=== PATIENT | female | born 1960 | race Caucasian/White ===

== ENCOUNTER 2024-06-06 07:39 | Inpatient (IN) ==
--- NOTE | 2024-04-28 08:57 | PAT Medication Instructions ---
Medication Instructions Date of Service April 28, 2024 Home Medications ascorbic acid (vitamin C) 1,000 mg tablet (Vitamin C) 1 g PO BID wcdjhyv-dzutmrblqwzwz-ugvsiptc 250 mg-250 mg-65 mg tablet (Excedrin Extra Strength) 1 tab PO Q6H PRN Migraine Headache carbamazepine 200 mg tablet (Tegretol) 400 mg PO TID celecoxib 200 mg capsule 200 mg PO BID fiber 1 cap PO BID glucosamine HCl 1,500 mg tablet 1,500 mg PO HS multivitamin 1 tab PO QAM naproxen sodium 220 mg tablet (Aleve) 220 mg PO BID ondansetron HCl 8 mg tablet 8 mg PO Q12H PRN Nausea PreserVision AREDS 2 tab PO BID ASK your surgeon for instructions ytyffvu-rpvfhhkniruuu-sqpknhqg 250 mg-250 mg-65 mg tablet (Excedrin Extra Strength) 1 tab PO Q6H PRN Migraine Headache celecoxib 200 mg capsule 200 mg PO BID naproxen sodium 220 mg tablet (Aleve) 220 mg PO BID STOP taking 2 weeks before surgery (or as soon as possible if surgery is within 2 weeks) glucosamine HCl 1,500 mg tablet 1,500 mg PO HS PreserVision AREDS 2 tab PO BID DO NOT take the morning of surgery ascorbic acid (vitamin C) 1,000 mg tablet (Vitamin C) 1 g PO BID fiber 1 cap PO BID multivitamin 1 tab PO QAM Take morning of surgery With a small sip of water, OTHERWISE NOTHING TO EAT OR DRINK AFTER MIDNIGHT: carbamazepine 200 mg tablet (Tegretol) 400 mg PO TID ondansetron HCl 8 mg tablet 8 mg PO Q12H PRN Nausea (if needed) Take evening before surgery ascorbic acid (vitamin C) 1,000 mg tablet (Vitamin C) 1 g PO BID carbamazepine 200 mg tablet (Tegretol) 400 mg PO TID fiber 1 cap PO BID ondansetron HCl 8 mg tablet 8 mg PO Q12H PRN Nausea (if needed) Other Notes If you have any questions please call us at [phone] or [phone] or [phone] or [phone]
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
[~2024-06-06 07:39] MED LIST: DEXAMETHASONE SOD INJ 4 MG/ML VIAL ONE; GLYCOPYRROLATE 0.2 MG/ML VIAL ONE; LIDOCAINE 2% 2 ML VIAL/AMP(20MG/ML) INFIL ONE; MIDAZOLAM HCL 1 MG/ML 2ML VIAL ONE; ONDANSETRON INJ 2 MG/ML 2 ML VIAL ONE; PROPOFOL IV EMULSION 10 MG/ML 20 ML VIAL IV ONE; ROCURONIUM BROMIDE 10 MG/ML 5 ML VIAL IV ONE; SUGAMMADEX SODIUM 200 MG/2 ML VIAL IV ONE; fentaNYL citrate PF 100 MCG/2 ML VIAL ONE
[2024-06-06] MEDS: LR 15ML/HR IV SCH (08:55)
[2024-06-06] MEDS: LR 60ML/HR IV SCH (09:04)
[2024-06-06] MEDS: ACETAMINOPHEN 500 MG TAB PO SCH (09:08)
[2024-06-06] MEDS: CeleBREX 200 MG CAP PO SCH (09:09)
[2024-06-06] MEDS: GABAPENTIN 600 MG DOSE PO SCH (09:09)
[2024-06-06] MEDS ORDERED: ONDANSETRON INJ 2 MG/ML 2 ML VIAL IV PRN ×2 (09:14→14:25)
[2024-06-06] MEDS ORDERED: ePHEDrine sulfate 50 MG/ML AMP IV PRN (09:14)
[2024-06-06] MEDS ORDERED: ATROPINE SULFATE 0.1 MG/ML 10ML SYR IV PRN (09:14)
--- NOTE | 2024-06-06 09:27 | History & Physical Bridge Note ---
Date of Service June 06, 2024 History & Physical Bridge Note I have examined the patient, reviewed the History & Physical and in the interval since the performance of the History & Physical I have noted the following changes of clinical significance: no changes noted
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
[2024-06-06] MEDS: ceFAZolin 2000MG 2,000 MG/15 ML SYR IV SCH (09:50)
[2024-06-06] MEDS ORDERED: fentaNYL citrate PF 100 MCG/2 ML VIAL ONE (10:21)
[2024-06-06] MEDS: BUPIVACAINE/EPINEPHRINE 0.25% 1:200,000 30 ML VIAL ONE (10:30)
[2024-06-06] MEDS ORDERED: ePHEDrine sulfate 50 MG/5 ML SYR ONE (10:55)
[2024-06-06] MEDS: ceFAZolin 330 MG/ML 1 GM VIAL ONE (11:44)
[2024-06-06] MEDS: FLOSEAL HEMOSTATIC MATRIX 10ML TOP ONE (11:44)
--- NOTE | 2024-06-06 11:54 | Operative Report ---
Post Operative Report Pre & Post Diagnosis Operation Date: 06/06/24 09:35 Pre-Op Diagnosis: #1 lumbar spinal stenosis with neurogenic claudication #2 lumbar spondylolisthesis L5-S1 with pars defect. #3 hernia nucleus pulposus L4-L5. Post-Op Diagnosis: Same I identified the patient and participated in the time-out.: Yes Procedure Operation Date: 06/06/24 09:35 Actual Procedures #1 lumbar decompression bilateral medial facetectomies and foraminotomies L3-L4 L4-L5 and L5-S1. #2 posterior spinal fusion L4-S1. #3 placed posterior instrumentation L4-S1. #4 interbody fusion L4-L5 L5-S1. #5 placement of Spira 13 x 26 mm x 2 at L4-L5 and the 10 x 26 mm x 2 at L5-S1. #6 placement locally harvested morselized autograft and posterior gutters. #7 placement of infuse collagen sponge combined with Koros in the posterior lateral gutters and os design interbody space. #8 application of versa wrap over the exposed dura. Surgeon Cory Luong, Tube Laser Operator Perla Manrique Estimated Blood Loss 400 Findings Consistent with Post-Op Diagnosis Specimens None Indications This is a 63-year-old female who presents above-mentioned diagnosis.. After failing since course of nonoperative care is here for surgical invention. Description of Procedure Patient was met with identified informed consent obtained. Patient was then taken to the operative suite underwent intubation placed in a prone position on the Magdy table on top of the Geovani frame. All bony promises well-padded eyes inspected to ensure no external pressure placed upon them. This point the lumbar spine was prepped and draped in normal sterile fashion. Sharp dissection with the assistance of Bovie cautery was performed down to and exposing the lamina and transverse processes of L4-5 and the sacral ala bilaterally. Obvious pars defect identified L5-S1 bilaterally. And then performed a complete laminectomy of L5 including bilateral medial facetectomies and foraminotomies addressing severe spinal stenosis. This is followed by complete laminectomy of L4 with bilateral medial facetectomies and foraminotomies as well as a large disc herniation on the left removed. And performed a partial laminectomy of L3 with bilateral medial facetectomies to address all subarticular stenosis. Pedicle screws were then placed in L4-L5 and S1 levels bilaterally with assistance of fluoroscopy and the properly sized darian placed. By way of transforaminal approach on the right a discectomy of L5-S1 was performed en dplates guarded to subcortical bleeding bone and a 10 x 26 mm Spira cage filled with os designed tapped in position. Then proceeded to the left transforaminal region at L5-S1. Again discectomy performed endplates corrected to subcortical bleeding bone and a second 10 x 26 mm Spira cage filled with os designed tapped into position. Then approached L4-L5 by way of transforaminal approach on the l eft a discectomy performed endplates guarded to subcortical bleeding bone and the 13 x 26 mm Spira cage filled with os designed tapped in position. I then proceeded to the right transforaminal region at L4-L5. Discectomy performed endplates. To supportively bone and a second 13 x 26 mm spiral cage filled with os designed tapped into position. The rods then compressed locked into final position bilaterally. The transverse processes of L4-5 and the sacral ala burred to subcortical bleeding bone. Infuse collagen sponge, with Koros and local autograft placed in posterior gutters. Versa wrap placed over the exposed dura. 15 round TONY drain inserted. The incision was then closed with 1 Vicryl the fascia 2-0 Vicryl subcutaneously and 4 Monocryl for final skin closure. Steri-Strips sterile dressings placed. Patient waken taken to PACU in stable condition. Please note spinal cord monitoring was utilized at the procedure no changes noted. Perla Manrique was present out the entire surgery involved the patient positioning complex portions of the surgery and possible closure. Im ordering 20 grams of Triple [place] Collagen Powder (Metricly [id number]) to treat an incision wound that was caused by a spine procedure. The incision is approximately 2 cm(W) x 4 cm(L) into the joint (D) in size and is a full thickness wound. Triple [place] collagen comes in 1 gram packets so 20 packets were ordered. Given the size of the wound, with light to moderate exudate I chose to order a 20 day supply. The patient will be provided instructions for proper application of the collagen wound kit. The patient will be asked to apply the collagen powder daily and then cover it with sterile dressings dispensed. Collagen was selected as I expect the collagen to attract monocytes and fibroblasts, act as a sacrificial substrate for MMPs, and ultimately proved a matrix for tissue and vessel growth. The collagen will act as a primary dressing in this scenario. It is medically necessary for proper healing of these wounds to improve bioavailability and contact with each wound surface, this is also to help prevent infection of wounds and promote healing ultimately leading to a better healing outcome and limit the risk of infection. I attest to the content of the Intraoperative Record and any orders documented therein. Any exceptions are noted below.
[2024-06-06] MEDS: fentaNYL citrate PF 100 MCG/2 ML VIAL IV PRN (12:15)
--- NOTE | 2024-06-06 12:33 | Fluoroscopy Report ---
INTRAOPERATIVE RADIOGRAPHS CLINICAL HISTORY: L4-S1 spinal fusion. Fluoro time: 27 seconds Ka,r: 22.47 mGy FINDINGS: 2 spot fluoroscopic views of the lumbar spine are presented. There has been discectomy at L 4-L5 and L5-S1 with laminectomy and posterior fusion at L4-S1. Interpedicular screws are present at a ll levels. The orthopedic hardware appears intact. IMPRESSION: Intraoperative images from lumbar spinal fusion surgery as above. Electronically signed by: Gaurav Turner M.D. 06/06/2024 12:32 PM
[2024-06-06] MEDS ORDERED: HYDROmorphone INJ 0.5 MG/0.5 ML SYR IV PRN ×2 (12:59→14:25)
[2024-06-06] MEDS: HYDROmorphone INJ 1 MG/ML SYRINGE ONE (13:02)
[2024-06-06] MEDS ORDERED: DO NOT ADMINISTER PNEUMOCOCCAL VACCINE PRN (14:25)
[2024-06-06] MEDS ORDERED: METOCLOPRAMIDE HCL INJ 5 MG/ML 2 ML VIAL IV PRN (14:25)
[2024-06-06] MEDS ORDERED: ALUMINUM/MAGNESIUM SUSP 30 ML UDC PO PRN (14:25)
[2024-06-06] MEDS ORDERED: hydrOXYzine HCl 25 MG TAB PO PRN (14:25)
[2024-06-06] MEDS ORDERED: LORazepam 2 MG/1 ML VIAL IV PRN (14:25)
[2024-06-06] MEDS ORDERED: FAMOTIDINE 20 MG TAB PO PRN (14:25)
[2024-06-06] MEDS ORDERED: bisacodyL 10 MG SUPP PR PRN (14:25)
[2024-06-06] MEDS ORDERED: DO NOT ADMINISTER FLU VACCINE PRN (14:25)
[2024-06-06] MEDS ORDERED: NALOXONE HCL 0.4 MG/1 ML VIAL/CARP IV PRN (14:25)
[2024-06-06] MEDS ORDERED: ACETAMINOPHEN 1,000 MG/100 ML VIAL IV PRN (14:25)
[2024-06-06] MEDS ORDERED: PROMETHAZINE 12.5 MG/50.5 ML BAG IV PRN (14:25)
[2024-06-06] MEDS ORDERED: LORazepam 0.5 MG TAB PO PRN (14:25)
[2024-06-06] MEDS ORDERED: diphenhydrAMINE Capsule 25 MG CAP PO PRN (14:25)
[2024-06-06] MEDS ORDERED: SOD PHOSPHATE/SOD BIPHOSPHATE ENEMA 132 ML BTL PR PRN (14:25)
[2024-06-06] MEDS ORDERED: MAGNESIUM HYDROXIDE SUSP 30 ML UDC PO PRN (14:25)
[2024-06-06] MEDS: LACTATED RINGER'S 1,000 ML IV SCH (14:36)
--- NOTE | 2024-06-06 15:14 | Anesthesiology Progress Note ---
Date of Service June 06, 2024 Anesthesia Post Procedure Vital Signs Vital Signs: Temp Pulse Pulse Resp BP Pulse Ox O2 Del Method 06/06/24 14:50 89 16 133/72 97 Nasal Cannula 06/06/24 14:20 97.7 F 100 H 18 131/74 98 Nasal Cannula 06/06/24 14:05 71 16 136/73 99 Nasal Cannula 06/06/24 13:45 74 12 137/66 99 Nasal Cannula 06/06/24 13:35 71 12 136/68 100 Nasal Cannula 06/06/24 13:25 97.5 F L 70 18 136/73 100 Nasal Cannula 06/06/24 13:15 74 16 148/74 H 100 Oxymask 06/06/24 13:05 68 13 132/64 100 Oxymask 06/06/24 12:55 85 13 129/99 100 Oxymask 06/06/24 12:45 87 13 139/70 100 Oxymask 06/06/24 12:35 73 15 146/74 H 100 Oxymask 06/06/24 12:25 81 16 141/80 H 100 Oxymask 06/06/24 12:15 66 12 136/68 100 Oxymask 06/06/24 12:06 97.3 F L 84 19 123/71 99 Oxymask 06/06/24 08:41 97.7 F 67 18 161/80 H 97 Room Air O2 Flow Rate 06/06/24 14:50 2.0 06/06/24 14:20 2.0 06/06/24 14:05 2 06/06/24 13:45 2 06/06/24 13:35 2 06/06/24 13:25 2 06/06/24 13:15 2 06/06/24 13:05 4 06/06/24 12:55 4 06/06/24 12:45 4 06/06/24 12:35 4 06/06/24 12:25 6 06/06/24 12:15 8 06/06/24 12:06 8 06/06/24 08:41 Pain Intensity Bilateral Lower Buttock: Pain Intensity: 6 Back: Pain Intensity: 5 Transfer of Care Handoff Completed per policy Notes Mental Status: alert / awake / arousable and participated in evaluation Patient Amnestic to Procedure: Yes Nausea / Vomiting: adequately controlled Pain: adequately controlled and improving with treatment Airway Patency, RR, SpO2: stable & adequate BP & HR: stable & adequate Hydration State: stable & adequate Anesthetic Complications: no major complications apparent and Pt Satisfied with anesthetic care
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
[2024-06-06] MEDS ORDERED: linaCLOtide 72 MCG CAPSULE PO PRN (16:02)
[2024-06-06] MEDS: ceFAZolin 1000MG 1,000 MG/7.5 ML SYR IV SCH (18:06)
[2024-06-06] MEDS: oxyCODONE HCL IR 5 MG TAB (IMMEDIATE RELEASE) PO PRN (20:30)
[2024-06-06] MEDS: ACETAMINOPHEN 500 MG TAB PO PRN (20:30)
[2024-06-06] MEDS: DOCUSATE SODIUM/SENNA 50/8.6MG TAB PO SCH (20:30)
[2024-06-06] MEDS: ASCORBIC ACID 500 MG TAB PO SCH (22:11)
[2024-06-06] MEDS: carBAMazepine 200 MG TABLET PO SCH (22:11)
[2024-06-07] MEDS: traMADol HCL 50 MG TABLET PO PRN (04:23)
[2024-06-07] MEDS: POLYETHYLENE (MIRALAX) 17 GM PACK PO SCH (05:38)
[2024-06-07 08:10] LABS: Basophils # (auto) 0.04 K/uL (0.00-0.20); Basophils % (auto) 0.5 %; Eosinophils # (auto) 0.04 K/uL (0.00-0.50); Eosinophils % (auto) 0.5 %; Hematocrit (blood only) 26.8 % (37.0-47.0); Immature Granulocytes # (auto) 0.02 K/uL (0.01-0.20); Immature Granulocytes % (auto) 0.2 %; Lymphocytes # (auto) 1.13 K/uL (1.20-3.40); Mean Corpuscular Hgb Conc 33.6 g/dL (32.0-36.0); Mean Corpuscular Volume 95.4 fL (80.0-100.0); Mean Platelet Volume 9.9 fL (9.4-12.4); Monocytes # (auto) 1.16 K/uL (0.11-0.59); Monocytes % (auto) 13.3 %; Neutrophils % (auto) 72.5 %; Platelet Count 186 K/uL (130-400); RDW Coefficient of Variation 12.9 % (11.5-14.5); RDW Standard Deviation 45.4 fL (36.4-46.3); Red Blood Count 2.81 M/uL (4.20-5.40); White Blood Count 8.69 K/ul (4.8-10.8)
[2024-06-07 08:34] LABS: Calcium 8.4 mg/dl (8.6-10.3); Creatinine Clr Calc Pharmacy 92.9 ml/min
--- NOTE | 2024-06-07 09:13 | Orthopedic Progress Note ---
Date of Service June 07, 2024 Assessment & Plan (1) Neurogenic claudication due to lumbar spinal stenosis: Plan: At this time continue physical therapy monitor TONY operatively discharge home next few days. Admission and Anticipated Discharge Date Admission Date: June 06, 2024 Subjective Back pain is controlled leg pain markedly improved Physical Exam Physical Exam: Patient is in the chair at the bedside. Suggesting to testing. Appears comfortable. Results & Data Vital Signs (Past 12 Hours) Vital Signs Temp Pulse Pulse Resp BP Pulse Ox O2 Del Method 06/07/24 08:13 37.0 C 94 H 14 135/80 94 Room Air 06/07/24 03:36 36.9 C 81 13 119/69 94 Room Air 06/06/24 23:20 37.0 C 81 13 126/64 95 Room Air
[2024-06-07] MEDS: CEROVITE ADV FORMULA TAB PO SCH (09:26)
[2024-06-07] MEDS: MULTIVITAMIN TAB PO SCH (09:26)
[2024-06-07] MEDS: dexAMETHasone 6 MG in SYRINGE 0 ML IV SCH (09:30)
--- NOTE | 2024-06-07 14:53 | Hospitalist Progress Note ---
Date of Service June 07, 2024 Assessment & Plan (1) Neurogenic claudication due to lumbar spinal stenosis: Plan: Patient is a 63 yr female with lumbar spinal stenosis, history of seizures, history of breast cancer s/p lumpectomy, COPD/bronchitis, constipation, and anxiety who underwent L4-S1 decompression and fusion today by Dr. Luong and for whom we have been consulted to assist with post-operative medical management. Lumbar spinal stenosis with neurogenic claudication S/P lumbar decompression, fusion surgery by Dr. Luong on 06/06/2024 -Lumbar Spine X ray:Intraoperative images from lumbar spinal fusion surgery as above. Postoperative acute blood loss anemia Hemodilution likely contributing as well Hemoglobin 9.0 Pain control Continue PT OT Bowel regimen to prevent constipation Continue spirometer Continue to monitor CBC DVT prophylaxis as per primary team (2) Seizure disorder: Plan: Chronic, stable Continue carbamazepine (3) TORRES MARTINEZ (hard of hearing): Plan: Pt is able to communicate by reading lips and denies need for champion of sustainable design at this time (4) Chronic constipation: Plan: Chronic Continue Linzess Also on bowel regimen Minimize narcotic use as able Plan DVT Px: As per primary team CODE STATUS Full code Admission and Anticipated Discharge Date Admission Date: June 06, 2024 Subjective Patient is seen and examined at bedside States having back pain in surgical site Lower extremity numbness, tingling, radicular pain resolved No bowel movement today Denies any chest pain, dyspnea, nausea, vomiting, abdominal pain Family at bedside Review of Systems Review of Systems: All systems reviewed & are unremarkable except as noted in Subjective Physical Exam Physical Exam: Physical Exam: Vitals signs as noted above General Appearance:Moderately built and nourished, no apparent distress Head: normocephalic, Atraumatic Eyes: normal inspection, EOMI Neck: supple, Trachea midline Respiratory/Chest: Normal breath sounds, CTA, No accessory muscle use Cardiovascular: S1, S2, No murmur Abdomen/GI:Soft, Non tender, Bowel sounds present Back: Surgical site in dressing,+drain Extremities/Musculoskeletal:normal inspection, no edema Neurologic/Psych:AAOX3, grossly no focal neurological deficits,+ decreased hearing Skin: normal color, warm Results & Data Results & Data Vital Signs (Past 12 Hours) Vital Signs Temp Pulse Pulse Resp BP Pulse Ox O2 Del Method 06/07/24 11:29 37.0 C 78 14 130/77 93 Room Air 06/07/24 08:13 37.0 C 94 H 14 135/80 94 Room Air 06/07/24 03:36 36.9 C 81 13 119/69 94 Room Air Laboratory Results Short CBC 06/07/24 Range/Units 07:46 WBC 8.69 (4.8-10.8) K/ul Hgb 9.0 L (12.0-16.0) g/dl Hct 26.8 L (37.0-47.0) % Plt Count 186 (130-400) K/uL BMP 06/07/24 07:46 Sodium 137 Potassium 4.0 Chloride 102 Carbon Dioxide 31 BUN 9 Creatinine 0.53 L Glucose 109 H Calcium 8.4 L
[2024-06-08] MEDS: HYDROmorphone INJ 1 MG/ML SYRINGE IV PRN (06:47)
[2024-06-08 07:18] LABS: Hemoglobin 8.9 g/dl (12.0-16.0); Mean Corpuscular Hemoglobin 31.4 pg (25.0-34.0); Mean Corpuscular Volume 95.4 fL (80.0-100.0); Mean Platelet Volume 10.1 fL (9.4-12.4); Platelet Count 206 K/uL (130-400); RDW Coefficient of Variation 13.2 % (11.5-14.5); RDW Standard Deviation 46.2 fL (36.4-46.3); Red Blood Count 2.83 M/uL (4.20-5.40); White Blood Count 8.29 K/ul (4.8-10.8)
[2024-06-08 07:44] LABS: BUN Creatinine Ratio 20.5 (10-20); Calcium 8.6 mg/dl (8.6-10.3); Creatinine Clr Calc Pharmacy 111.9 ml/min; Magnesium 1.9 mg/dl (1.7-2.4); Potassium 3.9 mmol/L (3.5-5.1)
--- NOTE | 2024-06-08 08:48 | Orthopedic Progress Note ---
Date of Service June 08, 2024 Assessment & Plan (1) Neurogenic claudication due to lumbar spinal stenosis: Plan: At this time want to continue physical therapy monitor TONY operatively discharge home tomorrow. Admission and Anticipated Discharge Date Admission Date: June 06, 2024 Subjective Back pain controlled leg symptoms improved Physical Exam Physical Exam: Patient is resting comfortably. Results & Data Vital Signs (Past 12 Hours) Vital Signs Temp Pulse Resp BP Pulse Ox O2 Del Method 06/08/24 06:59 37.3 C 75 17 117/67 85 L Room Air Queries Orthopedic Spine Acute Posthemorrhagic Anemia: Yes
[2024-06-08] MEDS: ONDANSETRON 4 MG OD TAB PO PRN (10:09)
--- NOTE | 2024-06-08 11:37 | Hospitalist Progress Note ---
Date of Service June 08, 2024 Assessment & Plan (1) Neurogenic claudication due to lumbar spinal stenosis: Plan: Patient is a 63 yr female with lumbar spinal stenosis, history of seizures, history of breast cancer s/p lumpectomy, COPD/bronchitis, constipation, and anxiety who underwent L4-S1 decompression and fusion today by Dr. Luong and for whom we have been consulted to assist with post-operative medical management. Lumbar spinal stenosis with neurogenic claudication S/P lumbar decompression, fusion surgery by Dr. Luong on 06/06/2024 Per ortho for pain control, wound care, anticoagulation and activities Continue incentive spirometry, PT/OT when appropriate DVT prophylaxis as per primary team Post op blood loss anemia Hgb 9.0 -> 8.9, pre-op hgb 12.1 Hemodilution likely contributing as well Monitor with daily CBC, no indication for transfusion at this time (2) Seizure disorder: Plan: Chronic, stable Continue carbamazepine (3) SANTO DOMINGO (hard of hearing): Plan: Pt is able to communicate by reading lips and denies need for antenna design engineer at this time (4) Chronic constipation: Plan: Chronic Continue Linzess, post op bowel regimen Minimize narcotic use as able Having post op bowel movements, at baseline DVT Px: SCDs per primary team CODE STATUS: Full code I spent a total of 40 minutes coordinating, documenting, and providing care for this patient excluding time spent in the performance of separately billed serv ices. Admission and Anticipated Discharge Date Admission Date: June 06, 2024 Subjective Seen and examined in 382-2. Feeling well today. Some surgical site TTP but controlled. Denies BLE weakness or pain. Getting up with therapy. Has had post op bowel movement. No F/C, CP, SOB, N/V, abd pain, dysuria or diarrhea. Review of Systems Review of Systems: At least ten systems reviewed and negative except as noted in the HPI. Physical Exam Physical Exam: GENERAL: Alert and oriented x3. NAD, on RA. SANTO DOMINGO HEENT: No pallor, no icterus. Pupils equal, round and reactive to light. Oral mucosa moist HEART: S1 and S2 heard. Regular rate and rhythm. RESPIRATORY SYSTEM: Clear to auscultation. No accessory muscle use ABDOMEN: Soft, bowel sounds present, nontender NEURO: Speech is clear. Moves extremities eithout issue. EXTREMITIES: + spinal dressing c/d/i. TONY drain visualized. No edema, no erythema seen Results & Data Results & Data Vital Signs (Past 12 Hours) Vital Signs Temp Pulse Resp BP Pulse Ox O2 Del Method 06/08/24 06:59 37.3 C 75 17 117/67 85 L Room Air Laboratory Results Short CBC 06/08/24 Range/Units 06:24 WBC 8.29 (4.8-10.8) K/ul Hgb 8.9 L (12.0-16.0) g/dl Hct 27.0 L (37.0-47.0) % Plt Count 206 (130-400) K/uL BMP 06/08/24 06:24 Sodium 137 Potassium 3.9 Chloride 101 Carbon Dioxide 30 BUN 9 Creatinine 0.44 L Glucose 107 H Calcium 8.6 Diagnostic Findings Lumbar Spine X-Ray 06/06/24 09:35 INTRAOPERATIVE RADIOGRAPHS CLINICAL HISTORY: L4-S1 spinal fusion. Fluoro time: 27 seconds Ka,r: 22.47 mGy FINDINGS: 2 spot fluoroscopic views of the lumbar spine are presented. There has been discectomy at L4-L5 and L5-S1 with laminectomy and posterior fusion at L4- S1. Interpedicular screws are present at all levels. The orthopedic hardware appears intact. IMPRESSION: Intraoperative images from lumbar spinal fusion surgery as above. Electronically signed by: Gaurav Turner M.D. 06/06/2024 12:32 PM
[2024-06-09 07:12] VITALS: BP 130/72; PULSE 76; RESP 15; TEMP 98.1; O2SAT 96
[2024-06-09 08:11] LABS: Hematocrit (blood only) 27.3 % (37.0-47.0)
[2024-06-09 08:25] LABS: BUN Creatinine Ratio 21.2 (10-20); Creatinine Clr Calc Pharmacy 94.7 ml/min; Potassium 3.9 mmol/L (3.5-5.1)
--- NOTE | 2024-06-09 08:25 | Discharge Summary ---
Date of Service June 09, 2024 Admission HPI Per Admitting Provider This is a 63-year-old female presents with chronic persistent back and leg pain of course of nonoperative care she is here for surgical invention. Principal Diagnosis Lumbar spinal stenosis with neurogenic claudication Discharge Data Allergies Allergy/AdvReac Type Severity Reaction Status Date / Time phenytoin [From Dilantin] AdvReac Severe Unknown Verified 06/06/24 08:33 Barbiturates AdvReac Intermediate See Comment Verified 06/06/24 08:33 diazepam [From Valium] AdvReac Intermediate Numbness Verified 06/06/24 08:33 Consultations 06/06/24 14:25 Consult Hospitalist Routine Procedures Performed Operation Date: 06/06/24 09:35 Actual Procedures p L4-L5, L5-S1 Decompression and Fusion, Spinal Cord Monitoring(Not Applicable) - Cory Luong DO Ordered Studies 06/06/24 09:35 [place] lumbar spine 2-3V Routine Hospital Course (1) Neurogenic claudication due to lumbar spinal stenosis: Patient underwent lumbar decompression and fusion trial as well as taken to orthopedic for postoperative. Post ablation progressed appropriately. TONY drain decreasing. Extra strength testing. Pain well-controlled. Simply discharged home. Discharge orders instructions from the chart for further review. Total Time Total Time Spent Total Time Spent (In Minutes): 20 minutes Discharge Plan Discharge Items Patient Disposition: Home - Self-Care Reason For Visit: Foraminal Stenosis of Lumbar Region, Spondylolithe Discharge Diagnosis: Lumbar spinal stenosis with spondylolisthesis and neurogenic claudication Activity: As commented below Non-emergency contact: Primary Care Provider Call non-emergency contact if: you have any medication questions Follow-up/Referrals: PCP,RADHA [Primary Care Provider] - Diet: Regular Addtl Attending Provider Instructions: ACTIVITY RECOMMENDATIONS: SELF CARE INSTRUCTIONS AFTER THORACIC/LUMBAR FUSIONS 1. You may walk to your tolerance. It is good exercise for your legs and back. Expect some back and intermittent leg aches and pains. 2. You may perform "counter-top" level activities (make a sandwich, darby with a project, etc.). 3. No bending or lifting of more than 10 pounds or back twisting of any nature (roll like a log when turning in bed). 4. You may ride in a car for 20-30 minutes at a time. No driving until after your first visit with your doctor. 5. Frequent changes of position and restricting sitting to 30 minutes at a time will help limit the amount of back spasms and stiffness you may experience. 6. You may discontinue the use of ambulatory aids (cane, crutches, etc.) once your strength and confidence allow. 7. You may retail gift card merchandising the shower and let water strike your incision when you arrive home at least once daily. Do not take a tub bath, sit in a hot tub or go into a swimming pool until after your first recheck in the office. 8. You may resume previous diet. SPECIAL CARE INSTRUCTIONS: VERY IMPORTANT TO READ AND REVIEW A. Your surgical incision has been closed with a cosmetic suture under the skin that will dissolve in about 6 weeks. In 14 days, you can use a pair of clean scissors and cut the suture that is left outside of the skin at the ends of your incision. 1. The small skin tapes can be removed 7 days after surgery if they have not fallen off by that point. 2. You may keep the wound open to air as much as possible to promote healing after post-op day number 5 unless told otherwise by your doctor. 3. If you think the wound looks like it is becoming infected (redness or worsening drainage) and/or you are experiencing fever, chill or worsening back pain and muscle spasms, contact the office so that we may evaluate you as soon as possible. B. Complications are uncommon, but please contact us if you have any signs or symptoms of: 1. wound infection (fever higher than 102.5 degrees F, redness, separation of wound, drainage, or increasing pain from the incision) 2. blood clots in legs (pain, swelling, redness and warmth in legs) 3. urinary tract infection (fever higher than 102.5 degrees F, burning upon urination or increased frequency of urination) 4. nerve problems (inability to walk on your toes or heels, numbness, loss of bowel or bladder control) 5. any other symptoms that concern you C. Please call the office at if you have any concerns or questions about your operation or recovery. D. No smoking! Smoking drastically decreases the chance of a solid fusion. E. Do not take any anti-inflammatory medications (Indocin, Advil, Motrin, Aspirin, Naprosyn, etc.) as these may inhibit the chance of a solid fusion. Tylenol is okay to take for pain. MANAGING PAIN AFTER SPINAL SURGERY 1. Narcotic medication is intended for short-term use and will be provided for surgical pain. Surgical pain usually lasts for a period of 4-6 weeks. Narcotic medication includes Percocet, Vicodin, Darvocet, Tylenol #3 or Lortab. 2. Longer-term pain is more appropriately treated with non-narcotic medication such as Tylenol ES. 3. Muscle spasm is not appropriately treated with narcotics. Muscle relaxers such as Soma, Flexeril or Skelaxin can be used along with Tylenol ES. 4. Remember that we all live with some "aches and pains". This is not unusual or uncommon after an injury or as we get older. a. Back pain is expected and may include muscle spasms for 4 to 6 weeks after surgery. The pain should gradually improve. If the pain worsens for no apparent reason, please contact the office. b. Intermittent leg pain may also be experienced and should not be concerned about unless it worsens for no apparent reason. If so, please contact the office. 5. We will provide appropriate medication within the normal guidelines of their prescribed use. We will also be very cautious and aware of potential abuse and extended duration of patients' medication needs. a. Pain medications are for your comfort and to assist with sleep and rest so that the tissue can heal. They are not provided in order to return to normal activity and should not be used through the day. To do so or worsening pain at night can result from ongoing tissue damage and development of tolerance to the prescribed medicine. 6. Please allow 2-3 days to process refills. Prescriptions will not be mailed but must be picked up at the office. FOLLOW UP VISIT: Keep your scheduled follow-up appointment. Any questions, please call the office at . Pending Studies at Discharge: No Stand-Alone Forms: [employer], Smoking Cessation Medications and DC Order Prescriptions: New tramadol 50 mg tablet 50 mg PO Q6H PRN (Reason: pain, moderate) Qty: 30 0RF oxycodone 5 mg tablet 5 mg PO Q6H PRN (Reason: pain) Qty: 30 0RF Continued multivitamin Tablet 1 tab PO QAM celecoxib 200 mg Capsule 200 mg PO BID ascorbic acid (vitamin C) [Vitamin C] 1,000 mg Tablet 1 g PO BID ondansetron HCl [Zofran] 8 mg Tablet 8 mg PO Q12H PRN (Reason: Nausea) carbamazepine [Tegretol] 200 mg Tablet 600 mg PO HS Patient Comments: "I have to take name brand" Rx Instructions: take 3 tablets (200mg) at HS- total of 600mg Excedrin Extra Strength 250-250-65 mg Tablet 1 tab PO Q6H PRN (Reason: Migraine Headache) fiber Capsule 1 cap PO BID glucosamine HCl 1,500 mg Tablet 1,500 mg PO HS Rx Instructions: administer with a meal PreserVision AREDS 2,148 mcg-113 mg-45 mg-17.4mg Tablet 2 tab PO BID Rx Instructions: administer with AM and PM meals Discontinued naproxen sodium [Aleve] 220 mg Tablet 220 mg PO BID No Action Linzess 72 mcg capsule 72 mcg PO DAILY PRN (Reason: Constipation) Discharge Orders: Discharge Order (Routine); Ordered 06/09/24 Ordered By: Cory Luong Admission Data Admit Date/Time: 06/06/24 11:58 Attending Provider: Cory Luong Admit Provider: Cory Luong Primary Care Provider: PCP,NO Other Providers: Emi Coronel; Sravanthi Ceja
--- NOTE | 2024-06-09 11:11 | Hospitalist Progress Note ---
Date of Service June 09, 2024 Assessment & Plan (1) Neurogenic claudication due to lumbar spinal stenosis: Plan: Patient is a 63 yr female with lumbar spinal stenosis, history of seizures, history of breast cancer s/p lumpectomy, COPD/bronchitis, constipation, and anxiety who underwent L4-S1 decompression and fusion today by Dr. Luong and for whom we have been consulted to assist with post-operative medical management. Lumbar spinal stenosis with neurogenic claudication S/P lumbar decompression, fusion surgery by Dr. 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 Admission and Anticipated Discharge Date Admission Date: June 06, 2024 Subjective Seen and examined in 382-2. Feeling well today. Pain is controlled. Denies BLE weakness or pain. Getting up with therapy and ready for discharge home. Having post op bowel movements. No F/C, CP, SOB, N/V, abd pain, dysuria or diarrhea. Review of Systems Review of Systems: At least ten systems reviewed and negative except as noted in the HPI. Physical Exam Physical Exam: GENERAL: Alert and oriented x3. NAD, on RA. SITKA HEENT: No pallor, no icterus. Pupils equal, round and reactive to light. Oral mucosa moist HEART: S1 and S2 heard. Regular rate and rhythm. RESPIRATORY SYSTEM: Clear to auscultation. No accessory muscle use ABDOMEN: Soft, bowel sounds present, nontender NEURO: Speech is clear. Moves extremities eithout issue. EXTREMITIES: + spinal dressing c/d/i. TONY drain visualized. No edema, no erythema seen Results & Data Results & Data Vital Signs (Past 12 Hours) Vital Signs Temp Pulse Resp BP Pulse Ox O2 Del Method 06/09/24 07:12 36.7 C 76 15 130/72 96 Room Air
== END 2024-06-09 10:33 | disposition home or self-care (01) | DRG 427 ==
LOC: ASU 07:39 → 3N 11:58